=== PATIENT | female | born 1980 ===

== ENCOUNTER 2018-04-26 09:19 | Inpatient (IN) | payer MEDICAID, OTHER ==
--- NOTE | 2018-04-26 09:24 | ED PDOC ---
Arrival/HPI - General Historian: Patient, EMS - History of Present Illness Narrative History of Present Illness (Text): 04/26/18 09:24 A 38 year old female, whose past medical history includes asthma, presents to the emergency department brought in by EMS for an asthma attack. EMS reports patient was sick last night with a fever of 103.1 degrees and woke up today with difficulty breathing, cough, and fever. Upon EMS arrival, EMS reports patient was found having difficulty breathing and patient was given 2 Albuterol treatments, 1 dose of atrovent, 125 mg of solumedrol, .25 mg of terbutaline, and 2 grams of magnesium sulfate. Patient was able to report she had sick contact with her roommate who also exhibited similar symptoms. Patient notes she is not a smoker and her last asthma attack occurred around two years ago. ROS limited due to patient's condition. Time/Duration: 1-3 hours (earlier today) Symptom Onset: Sudden Symptom Course: Unchanged Activities at Onset: Light Context: Home Past Medical History - Provider Review Nursing Documentation Reviewed: Yes Family/Social History - Physician Review Nursing Documentation Reviewed: Yes Family/Social History: No Known Family HX Allergies/Home Meds Allergies/Adverse Reactions: Allergies No Known Allergies Allergy (Verified 04/26/18 09:21) Home Medications: Home Meds Medication Instructions Recorded Confirmed Albuterol HFA [Ventolin HFA 90 1 puff IH PRN PRN 04/26/18 04/26/18 mcg/actuation (8 g)] Fluticasone/Salmeterol 250/50 1 puff INH PRN PRN 04/26/18 04/26/18 [Advair Diskus 250/50] Review of Systems - Review of Systems Systems not reviewed;Unavailable: Respiratory Distress Physical Exam Vital Signs Reviewed: Yes Temperature: Afebrile Blood Pressure: Normal Pulse: Tachycardic Respiratory Rate: Normal Appearance: Positive for: Non-Toxic - Systems Exam Head: Present: Atraumatic, Normocephalic Pupils: Present: PERRL Extroacular Muscles: Present: EOMI Conjunctiva: Present: Normal Respiratory/Chest: Present: Wheezes (bilateral expiratory wheezing). No: Other (no stridor) Cardiovascular: Present: Regular Rate and Rhythm, Normal S1, S2. No: Murmurs Abdomen: No: Tenderness, Distention, Peritoneal Signs Back: Present: Normal Inspection Upper Extremity: Present: Normal Inspection. No: Cyanosis, Edema Lower Extremity: Present: Normal Inspection. No: Edema Neurological: Present: GCS=15, CN II-XII Intact, Speech Normal Skin: Present: Warm, Dry, Normal Color. No: Rashes Psychiatric: Present: Alert, Oriented x 3, Normal Insight, Normal Concentration Medical Decision Making ED Course and Treatment: 04/26/18 09:26 Impression: 38 year old female presenting to the emergency room for asthma attack. Plan: -- Chest X-ray -- Duoneb -- Reassess and disposition Progress Notes: 04/26/18 12:27 Procedure: Chest X-ray Dictator: Rhiannon Malone Impression: Questionable small opacity at the left lower lobe. Otherwise unremarkable study. - Scribe Statement The provider has reviewed the documentation as recorded by the Scribe Ashley Benoit All medical record entries made by the Scribe were at my direction and personally dictated by me. I have reviewed the chart and agree that the record accurately reflects my personal performance of the history, physical exam, medical decision making, and the department course for this patient. I have also personally directed, reviewed, and agree with the discharge instructions and disposition. Disposition/Present on Arrival - Present on Arrival Any Indicators Present on Arrival: No History of DVT/PE: No History of Uncontrolled Diabetes: No Urinary Catheter: No History of Decub. Ulcer: No - Disposition Have Diagnosis and Disposition been Completed?: Yes Diagnosis: Asthma exacerbation, Influenza A Disposition: HOSPITALIZED Disposition Time: 13:41 Condition: GOOD
[2018-04-26] MEDS: Albuterol-Ipratrop 3 mg / 0.5 (3 ml) UD IH SCH ×3 (09:43→10:08)
[2018-04-26 10:13] LABS: ALB/GLOB RATIO 1.1 (1.1-1.8); ALBUMIN 4.4 g/dL (3.0-4.8); ALT/SGPT 39 U/L (7-56); AST/SGOT 54 U/L (14-36); BLOOD UREA NITROGEN 13 mg/dL (7-21); CALCIUM 9.3 mg/dL (8.4-10.5); GFR NON-AFRICAN AMERICAN > 60
[2018-04-26 10:30] LABS: BASO # 0.01 K/mm3 (0.0-2.0); BASO % 0.1 % (0.0-3.0); HEMOGLOBIN 14.4 g/dL (12.0-16.0); LYMPH # 1.2 (1.2-3.4); LYMPH % 10.3 % (22.0-35.0); MEAN CELL VOLUME 77.2 fl (80.0-105.0); MEAN CORPUSCULAR HEMOGLOBIN 26.1 pg (25.0-35.0); MEAN CORPUSCULAR HGB CONC 33.8 g/dl (31.0-37.0); MEAN PLATELET VOLUME 10.9 fl (7.0-11.0); MONO # 0.5 (0.1-0.6); RBC 5.52 10^6/uL (3.5-6.1); RED CELL DISTRIBUTION WIDTH 13.5 % (11.5-14.5); WHITE BLOOD COUNT 11.9 10^3/uL (4.5-11.0)
[2018-04-26] MEDS ORDERED: Potassium Chloride 20 mEq ER Tab PO STA (10:56)
[2018-04-26] MEDS ORDERED: Albuterol 0.083% Inhal Sol (2.5 mg/3 mL) UD INH STA (11:43)
--- NOTE | 2018-04-26 12:13 | RAD ---
Date of service: 04/26/2018 HISTORY: asthma exacerbation COMPARISON: No prior. FINDINGS: LUNGS: There is questionable small opacity or infiltrate at the left lower lobe retrocardiac region noted. Slightly prominent pulmonary markers in the lower lobes. PLEURA: No significant pleural effusion identified, no pneumothorax apparent. CARDIOVASCULAR: No aortic atherosclerotic calcification present. Normal cardiac size. No pulmonary vascular congestion. OSSEOUS STRUCTURES: No significant abnormalities. VISUALIZED UPPER ABDOMEN: Normal. OTHER FINDINGS: None. IMPRESSION: Questionable small opacity at the left lower lobe. Otherwise unremarkable study.
[2018-04-26 14:53] VITALS: BMI 34.3
[2018-04-26] MEDS ORDERED: Pneumococcal 23-Valent Vaccine IM ONE (14:53)
[2018-04-26] MEDS ORDERED: Influenza Vaccine 60 mcg/0.5 mL SYR (4YR UP) IM ONE (14:53)
[2018-04-26] MEDS: Azithromycin 500MG/NS 250ml 500 MG/250 ML BAG IVPB SCH (17:39)
--- NOTE | 2018-04-26 17:42 | CP.PCM.HP ---
<David Latif - Last Filed: 04/27/18 03:42> History of Present Illness - History of Present Illness History of Present Illness: H&P for Hospitalist Dr. Caleb Latif PGY2 Chief Complaint: Shortness of breath, dizziness, head and body aches, chest con gestion HPI: Patient is a 38 female with a medical history of asthma (never intubated), presenting with complaints of chest congestion and body aches which began last night. Patient states she took her temperature when the symptoms started and noticed she was febrile at 102.6 F. Patient states she woke up this morning with the same symptoms however at this time they had worsened. Patient was hav ing much difficult breathing despite taking using albuterol, advair, and her nebulizer with no relief and therefore called EMS. Patient was brought to the ED and found to be in asthma exacerbation and positive for influenza A. Admits to cough, chest congestion, fever, sneezing, dizziness, headache, body aches. Denies sore throat, nausea, vomiting, chest pain, abdominal pain. PMD: Denies Surgical History: denies Social history: denies tobacco, alcohol, drug abuse. Works as a contractor for construction (own business) Allergies: Denies Family History: grandmother had asthma Present on Admission - Present on Admission Any Indicators Present on Admission: No Review of Systems - Review of Systems All systems: reviewed and no additional remarkable complaints except (what's mentioned in HPI) Past Patient History - Infectious Disease Hx of Infectious Diseases: None - Past Social History Smoking Status: Never Smoked - CARDIAC Hx Cardiac Disorders: No - PULMONARY Hx Respiratory Disorders: Yes Hx Asthma: Yes - NEUROLOGICAL Hx Neurological Disorder: No - HEENT Hx HEENT Problems: Yes (eyeglasses) - RENAL Hx Chronic Kidney Disease: No - ENDOCRINE/METABOLIC Hx Endocrine Disorders: No - HEMATOLOGICAL/ONCOLOGICAL Hx Blood Disorders: No - INTEGUMENTARY Hx Dermatological Problems: No - MUSCULOSKELETAL/RHEUMATOLOGICAL Hx Falls: No - GASTROINTESTINAL Hx Gastrointestinal Disorders: Yes (obese) - GENITOURINARY/GYNECOLOGICAL Hx Genitourinary Disorders: No - PSYCHIATRIC Hx Substance Use: No - SURGICAL HISTORY Hx Surgeries: No - ANESTHESIA Hx Anesthesia: No Meds Allergies/Adverse Reactions: Allergies Allergy/AdvReac Type Severity Reaction Status Date / Time No Known Allergies Allergy Verified 01/26/19 09:21 Physical Exam - Constitutional Appears: Non-toxic - Head Exam Head Exam: ATRAUMATIC, NORMAL INSPECTION - Eye Exam Eye Exam: Normal appearance - Respiratory Exam Respiratory Exam: Wheezes (bilateral diffuse). absent: Clear to Auscultation Bi lateral - Cardiovascular Exam Cardiovascular Exam: Tachycardia, +S1, +S2 - GI/Abdominal Exam GI & Abdominal Exam: Normal Bowel Sounds, Soft - Neurological Exam Neurological exam: Alert, CN II-XII Intact, Oriented x3 - Psychiatric Exam Psychiatric exam: Normal Mood - Skin Skin Exam: Dry, Warm Results - Vital Signs Recent Vital Signs: Last Vital Signs Temp 98.1 F 04/26/18 09:22 Pulse 123 H 04/26/18 15:01 Resp 18 04/26/18 15:01 BP 106/70 04/26/18 15:01 Pulse Ox 96 04/26/18 15:01 - Labs Result Diagrams: 04/26/18 09:24 04/26/18 09:24 Labs: Laboratory Results - last 24 hr 04/26/18 04/26/18 04/26/18 09:24 09:24 09:24 WBC 11.9 H RBC 5.52 Hgb 14.4 Hct 42.6 MCV 77.2 L MCH 26.1 MCHC 33.8 RDW 13.5 Plt Count 208 MPV 10.9 Neut % (Auto) 85.6 H Lymph % (Auto) 10.3 L Jefferson % (Auto) 4.0 Eos % (Auto) 0.0 L Baso % (Auto) 0.1 Lymph # (Auto) 1.2 Jefferson # (Auto) 0.5 Eos # (Auto) 0.0 Baso # (Auto) 0.01 Absolute Neuts (auto) 10.19 H Sodium 134 Potassium 3.1 L Chloride 99 Carbon Dioxide 19 L Anion Gap 20 BUN 13 Creatinine 0.8 Est GFR ( Amer) > 60 Est GFR (Non-Af Amer) > 60 Random Glucose 201 H Calcium 9.3 Total Bilirubin 0.4 AST 54 H ALT 39 Alkaline Phosphatase 69 Total Protein 8.5 H Albumin 4.4 Globulin 4.0 Albumin/Globulin Ratio 1.1 Beta HCG, Quant Influenza Typ A,B (EIA) Pos for influenza a H 04/26/18 09:24 WBC RBC Hgb Hct MCV MCH MCHC RDW Plt Count MPV Neut % (Auto) Lymph % (Auto) Jefferson % (Auto) Eos % (Auto) Baso % (Auto) Lymph # (Auto) Jefferson # (Auto) Eos # (Auto) Baso # (Auto) Absolute Neuts (auto) Sodium Potassium Chloride Carbon Dioxide Anion Gap BUN Creatinine Est GFR ( Amer) Est GFR (Non-Af Amer) Random Glucose Calcium Total Bilirubin AST ALT Alkaline Phosphatase Total Protein Albumin Globulin Albumin/Globulin Ratio Beta HCG, Quant < 2.39 Influenza Typ A,B (EIA) Assessment & Plan - Assessment and Plan (Free Text) Assessment: 38 F with history of asthma presenting with chest congestion, cough, head and body aches, fevers, chills found to be in asthma exacerbation with underlying influenza A virus. Plan: Asthma exacerbation -Xopenex PRN and JUAN DIEGO -Pulmicort -Solumedrol 40 q12h -Sputum C&S -Peak flow ordered Influenza A -Tamiflu started Left lower lobe opacity -R/o pneumonia -Azithromax and Rocephin started -Procaclitonin ordered -Pancultures -Test for Legionella urinary antigen, Mycoplasma, Strep pneumo Tachycardia -Continue to monitor -Most likely due to Infection -EKG ordered Hyperglycemia -Continue to monitor -HgA1C ordered Hypokalemia -Repleted with KCL -Continue to monitor, follow up with morning labs GI ppx:protonix DVT prophylaxis: No indicated as Vincenzo Score is [address] Caleb Latif PGY2 <Dominguez Ellis - Last Filed: 04/27/18 12:33> Results - Vital Signs Recent Vital Signs: Last Vital Signs Temp 98.2 F 04/27/18 07:00 Pulse 94 H 04/27/18 07:00 Resp 20 04/27/18 07:00 BP 102/67 04/27/18 07:00 Pulse Ox 96 04/27/18 07:00 - Labs Result Diagrams: 04/27/18 07:30 04/27/18 07:30 Labs: Laboratory Results - last 24 hr 04/26/18 04/27/18 04/27/18 18:24 07:30 07:30 WBC 20.9 H D RBC 5.24 Hgb 13.5 Hct 40.6 MCV 77.5 L MCH 25.8 MCHC 33.3 RDW 13.6 Plt Count 225 MPV 10.9 Neut % (Auto) 90.0 H Lymph % (Auto) 5.4 L Jefferson % (Auto) 4.6 Eos % (Auto) 0.0 L Baso % (Auto) 0.0 Lymph # (Auto) 1.1 L Jefferson # (Auto) 1.0 H Eos # (Auto) 0.0 Baso # (Auto) 0.00 Absolute Neuts (auto) 18.77 H Sodium 138 Potassium 4.5 Chloride 109 H Carbon Dioxide 21 Anion Gap 13 BUN 16 Creatinine 0.7 Est GFR ( Amer) > 60 Est GFR (Non-Af Amer) > 60 Random Glucose 153 H Calcium 8.5 Total Bilirubin 0.2 AST 58 H ALT 48 Alkaline Phosphatase 57 Total Protein 7.3 Albumin 3.8 Globulin 3.6 Albumin/Globulin Ratio 1.1 Urine Color Yellow Urine Appearance Clear Urine pH 6.0 Ur Specific Spencer 1.020 Urine Protein Negative Urine Glucose (UA) Negative Urine Ketones Negative Urine Blood Trace-intact H Urine Nitrate Negative Urine Bilirubin Negative Urine Urobilinogen 0.2 Ur Leukocyte Esterase Negative Urine RBC 5 - 10 H Urine WBC 1 - 3 Ur Epithelial Cells 4 - 5 Urine Bacteria Many Urine Other Uyeast Attending/Attestation - Attestation I have personally seen and examined this patient.: Yes I have fully participated in the care of the patient.: Yes I have reviewed all pertinent clinical information: Yes Notes (Text): 04/27/18 12:29 Attending note; Patient seen and examined with resident . Patient is alert and awake . Complaining of fevers and chills . Complaining of wheezing and shortness of breath . Denies any nausea, vomiting . Complaining of poor by mouth intake . Patient is a 38year old female with a medical history of asthma (never intubated), presenting with complaints of chest congestion and body aches which began last night. Patient states she took her temperature when the symptoms started and noticed she was febrile at 102.6 F. 1. Influenza A; patient is having spiking fevers and tachycardia. Patient was tachycardic with heart rate of 130s. Started on IV fluids, Tamiflu. Continue Tylenol for fever. 2. Sepsis; secondary to influenza. 3. Left lower lobe pneumonia; started on IV Rocephin and Zithromax. 4. Asthma exacerbation; continue oxygen, DuoNeb and IV Solu-Medrol. Patient is on isolation. 5 GI prophylaxis with Protonix. The diagnosis, treatment plan discussed with patient in detail. Patient will be referred to [facility] clinic upon discharge.
[2018-04-26] MEDS: Levalbuterol 0.63 MG/3 ML Inhal Soln UD IH SCH (18:51)
[2018-04-26 18:56] LABS: URINE APPEARANCE CLEAR (CLEAR); URINE BILIRUBIN NEGATIVE (NEGATIVE); URINE BLOOD TRACE-INTACT (NEGATIVE); URINE COLOR YELLOW (YELLOW); URINE GLUCOSE (UA) NEGATIVE (NEGATIVE); URINE LEUKOCYTE ESTERASE NEGATIVE Leu/uL (NEGATIVE); URINE PROTEIN NEGATIVE mg/dL (<30 mg/dL); URINE UROBILINOGEN 0.2 E.U./dL (<1 E.U./dL)
[2018-04-26 19:01] LABS: URINE BACTERIA MANY /hpf
[2018-04-26] MEDS: cefTRIAXone 1 gm 1 GM/100 ML BAG IVPB SCH (19:47)
[2018-04-26] MEDS: Budesonide 0.5 mg/2 ml Inhal Susp UD IH SCH (20:54)
[2018-04-26] MEDS: MethylPREDNISolone 40 mg Vial IVP SCH (22:04)
[2018-04-27] MEDS: Levalbuterol 0.63 MG/3 ML Inhal Soln UD IH PRN ×4 (00:34→23:55)
[2018-04-27] MEDS: Levalbuterol 0.63 MG/3 ML Inhal Soln UD IH SCH ×4 (07:09→19:32)
[2018-04-27] MEDS: Budesonide 0.5 mg/2 ml Inhal Susp UD IH SCH ×2 (07:09→19:32)
[2018-04-27 07:45] LABS: HEMOGLOBIN 13.5 g/dL (12.0-16.0); LYMPH # 1.1 (1.2-3.4); LYMPH % 5.4 % (22.0-35.0); MEAN CELL VOLUME 77.5 fl (80.0-105.0); MEAN CORPUSCULAR HEMOGLOBIN 25.8 pg (25.0-35.0); MEAN CORPUSCULAR HGB CONC 33.3 g/dl (31.0-37.0); MEAN PLATELET VOLUME 10.9 fl (7.0-11.0); MONO % 4.6 % (1.0-6.0); RBC 5.24 10^6/uL (3.5-6.1); RED CELL DISTRIBUTION WIDTH 13.6 % (11.5-14.5); WHITE BLOOD COUNT 20.9 10^3/uL (4.5-11.0)
[2018-04-27 08:05] LABS: ALB/GLOB RATIO 1.1 (1.1-1.8); ALBUMIN 3.8 g/dL (3.0-4.8); ALT/SGPT 48 U/L (7-56); AST/SGOT 58 U/L (14-36); BLOOD UREA NITROGEN 16 mg/dL (7-21); CALCIUM 8.5 mg/dL (8.4-10.5); GFR NON-AFRICAN AMERICAN > 60
[2018-04-27] MEDS: MethylPREDNISolone 40 mg Vial IVP SCH ×2 (09:32→22:18)
--- NOTE | 2018-04-27 13:20 | CP.PCM.PN ---
<Luis Cespedes - Last Filed: 04/27/18 13:09> Subjective - Date & Time of Evaluation Date of Evaluation: 04/27/18 Time of Evaluation: 13:09 - Subjective Subjective: INTERNAL MEDICINE PROGRESS NOTE FOR DR. KLAUDIA Cespedes PGY1 Pt seen and examined at bedside this am. No acute events overnight. Pt complains of cough, bodyaches and fever. Otherwise ROS is negative Objective - Vital Signs/Intake and Output Vital Signs (last 24 hours): Temp Pulse Resp BP Pulse Ox 98.2 F 94 H 20 102/67 96 04/27/18 07:00 04/27/18 07:00 04/27/18 07:00 04/27/18 07:00 04/27/18 07:00 Intake and Output: 04/27/18 04/27/18 06:59 18:59 Intake Total 1300 Balance 1300 - Medications Medications: Current Medications Acetaminophen (Tylenol 325mg Tab) 650 mg PO Q6H PRN PRN Reason: Flu symptoms Last Admin: 04/27/18 09:33 Dose: 650 mg Budesonide (Pulmicort Respules) 1 mg IH [id number] JUAN DIEGO Last Admin: 04/27/18 07:09 Dose: 1 mg Guaifenesin (Robitussin) 200 mg PO Q4H PRN PRN Reason: Cough and congestion Ceftriaxone Sodium (Rocephin 1 Gram Ivpb) 1 gm in 100 mls @ 100 mls/hr IVPB Q24H JUAN DIEGO; Protocol Last Admin: 04/26/18 19:47 Dose: 100 mls/hr Azithromycin (Zithromax 500mg In Ns) 500 mg in 250 mls @ 167 mls/hr IVPB Q24H JUAN DIEGO; Protocol Last Admin: 04/26/18 17:39 Dose: 167 mls/hr Potassium Chloride 10 meq/ (Sodium Chloride) 1,005 mls @ 100 mls/hr IV .Q10H3M JUAN DIEGO Last Admin: 04/26/18 18:39 Dose: 100 mls/hr Levalbuterol HCl (Xopenex) 0.63 mg IH [id number] PRN PRN Reason: Shortness of Breath Last Admin: 04/27/18 10:29 Dose: 0.63 mg Levalbuterol HCl (Xopenex) 0.63 mg IH TIDRESP JUAN DIEGO Last Admin: 04/27/18 07:09 Dose: 0.63 mg Methylprednisolone (Solu-Medrol) 40 mg IVP Q12 JUAN DIEGO Last Admin: 04/27/18 09:32 Dose: 40 mg Oseltamivir Phosphate (Tamiflu Cap) 75 mg PO Q12 JUAN DIEGO; Protocol Last Admin: 04/27/18 09:33 Dose: 75 mg Pantoprazole Sodium (Protonix Inj) 40 mg IVP DAILY JUAN DIEGO Last Admin: 04/27/18 09:32 Dose: 40 mg - Labs Labs: 04/27/18 07:30 04/27/18 07:30 - Constitutional Appears: Well, Non-toxic, No Acute Distress - Head Exam Head Exam: NORMAL INSPECTION, NORMOCEPHALIC - Eye Exam Eye Exam: EOMI, Normal appearance - ENT Exam ENT Exam: Mucous Membranes Moist, Normal Exam - Neck Exam Neck Exam: Normal Inspection - Respiratory Exam Respiratory Exam: Wheezes, NORMAL BREATHING PATTERN - Cardiovascular Exam Cardiovascular Exam: REGULAR RHYTHM, +S1, +S2 - GI/Abdominal Exam GI & Abdominal Exam: Soft. absent: Tenderness - Extremities Exam Extremities Exam: Normal Inspection. absent: Calf Tenderness - Back Exam Back Exam: NORMAL INSPECTION - Neurological Exam Neurological Exam: Alert, Awake, Oriented x3 - Psychiatric Exam Psychiatric exam: Normal Affect, Normal Mood - Skin Skin Exam: Dry, Intact, Warm Assessment and Plan - Assessment and Plan (Free Text) Assessment: 38 F with history of asthma presenting with chest congestion, cough, head and body aches, fevers, chills found to be in asthma exacerbation with underlying influenza A virus. Plan: Sepsis 2/2 influenza WBC >12k, HR>90 with source Pt spiked fevers overnight continue tamiflu droplet precautions Asthma exacerbation continue Xopenex PRN and JUAN DIEGO, pulmicort continue solumedrol 40 q12h robitussin for cough Sputum C&S pending Peak flow Left lower lobe pneumonia continue azithromycin/ceftriaxone continue NS@100 procalcitonin pending pancultures pending Legionella urinary antigen negative Mycoplasma, Strep pneumo Hyperglycemia like 2/2 steroids a1c wnl GI ppx/DVT: protonix/SCD Case seen, examined and discussed with attending physician, Dr. Klaudia Cespedes PGY1 <Dominguez Ellis - Last Filed: 04/27/18 13:29> Objective - Vital Signs/Intake and Output Vital Signs (last 24 hours): Temp Pulse Resp BP Pulse Ox 98.2 F 94 H 20 102/67 96 04/27/18 07:00 04/27/18 07:00 04/27/18 07:00 04/27/18 07:00 04/27/18 07:00 Intake and Output: 04/27/18 04/27/18 06:59 18:59 Intake Total 1300 Balance 1300 - Medications Medications: Current Medications Acetaminophen (Tylenol 325mg Tab) 650 mg PO Q6H PRN PRN Reason: Flu symptoms Last Admin: 04/27/18 09:33 Dose: 650 mg Budesonide (Pulmicort Respules) 1 mg IH [id number] JUAN DIEGO Last Admin: 04/27/18 07:09 Dose: 1 mg Guaifenesin (Robitussin) 200 mg PO Q4H PRN PRN Reason: Cough and congestion Ceftriaxone Sodium (Rocephin 1 Gram Ivpb) 1 gm in 100 mls @ 100 mls/hr IVPB Q24H JUAN DIEGO; Protocol Last Admin: 04/26/18 19:47 Dose: 100 mls/hr Azithromycin (Zithromax 500mg In Ns) 500 mg in 250 mls @ 167 mls/hr IVPB Q24H JUAN DIEGO; Protocol Last Admin: 04/26/18 17:39 Dose: 167 mls/hr Potassium Chloride 10 meq/ (Sodium Chloride) 1,005 mls @ 100 mls/hr IV .Q10H3M JUAN DIEGO Last Admin: 04/26/18 18:39 Dose: 100 mls/hr Levalbuterol HCl (Xopenex) 0.63 mg IH [id number] PRN PRN Reason: Shortness of Breath Last Admin: 04/27/18 10:29 Dose: 0.63 mg Levalbuterol HCl (Xopenex) 0.63 mg IH TIDRESP JUAN DIEGO Last Admin: 04/27/18 07:09 Dose: 0.63 mg Methylprednisolone (Solu-Medrol) 40 mg IVP Q12 JUAN DIEGO Last Admin: 04/27/18 09:32 Dose: 40 mg Oseltamivir Phosphate (Tamiflu Cap) 75 mg PO Q12 JUAN DIEGO; Protocol Last Admin: 04/27/18 09:33 Dose: 75 mg Pantoprazole Sodium (Protonix Inj) 40 mg IVP DAILY [facility] Last Admin: 04/27/18 09:32 Dose: 40 mg - Labs Labs: 04/27/18 07:30 04/27/18 07:30 Attending/Attestation - Attestation I have personally seen and examined this patient.: Yes I have fully participated in the care of the patient.: Yes I have reviewed all pertinent clinical information, including history, physical exam and plan: Yes Notes (Text): 04/27/18 13:25 Attending note; Patient seen and examined with resident. Patient is alert and awake. Fever is down. Chills improving. wheezing and shortness of breath is improving slowly. Complaining yellowish sputum production. Patient is a 38year old female with a medical history of asthma (never intubated), presenting with complaints of chest congestion and body aches which began last night. Patient states she took her temperature when the symptoms started and noticed she was febrile at 102.6 F. 1. Influenza A; fever and tachycardia is improving. Started on IV fluids, Tamiflu. Continue Tylenol for fever. 2. Sepsis; secondary to influenza. 3. Left lower lobe pneumonia; started on IV Rocephin and Zithromax. 4. Asthma exacerbation; continue oxygen, DuoNeb and IV Solu-Medrol. Patient is on isolation. 5. Leukocytosis; secondary to steroids. Sepsis is improving. 6. Elevated blood sugar secondary to IV Steroid. A1c 5.5 . dietary education given . 5 GI prophylaxis with Protonix. The diagnosis, treatment plan discussed with patient in detail. Patient will be referred to [facility] clinic upon discharge. 04/27/18 13:28
[2018-04-27] MEDS: guaiFENesin 200 mg/10 ml Syrup UD PO PRN ×2 (14:11→22:19)
[2018-04-27] MEDS: Azithromycin 500MG/NS 250ml 500 MG/250 ML BAG IVPB SCH (17:34)
--- NOTE | 2018-04-27 21:26 | CARD ---
APPROVED REPORT Date of service: 04/26/2018 EKG Measurement Heart [id number] <Conclusion> Sinus tachycardia Otherwise normal ECG
[2018-04-27] MEDS: cefTRIAXone 1 gm 1 GM/100 ML BAG IVPB SCH (22:18)
[2018-04-28 07:35] LABS: HEMOGLOBIN 12.6 g/dL (12.0-16.0); LYMPH # 1.3 (1.2-3.4); LYMPH % 8.3 % (22.0-35.0); MEAN CELL VOLUME 77.8 fl (80.0-105.0); MEAN CORPUSCULAR HEMOGLOBIN 25.9 pg (25.0-35.0); MEAN CORPUSCULAR HGB CONC 33.3 g/dl (31.0-37.0); MEAN PLATELET VOLUME 10.9 fl (7.0-11.0); MONO # 0.7 (0.1-0.6); MONO % 4.9 % (1.0-6.0); RBC 4.86 10^6/uL (3.5-6.1); RED CELL DISTRIBUTION WIDTH 13.9 % (11.5-14.5)
[2018-04-28] MEDS: Budesonide 0.5 mg/2 ml Inhal Susp UD IH SCH ×2 (07:38→19:48)
[2018-04-28] MEDS: Levalbuterol 0.63 MG/3 ML Inhal Soln UD IH SCH ×3 (07:39→19:48)
[2018-04-28 08:18] LABS: ALBUMIN 3.3 g/dL (3.0-4.8); ALT/SGPT 48 U/L (7-56); AST/SGOT 53 U/L (14-36); BLOOD UREA NITROGEN 15 mg/dL (7-21); CALCIUM 8.3 mg/dL (8.4-10.5); GFR NON-AFRICAN AMERICAN > 60
[2018-04-28] MEDS: MethylPREDNISolone 40 mg Vial IVP SCH ×2 (09:16→21:42)
--- NOTE | 2018-04-28 11:47 | RAD ---
Date of service: 04/28/2018 HISTORY: continuous wheezing, poss PNA, reassess COMPARISON: Portable chest 04/26/2018. FINDINGS: LUNGS: No active pulmonary disease. PLEURA: No significant pleural effusion identified, no pneumothorax apparent. CARDIOVASCULAR: No aortic atherosclerotic calcification present. Normal cardiac size. Hilar vascular markings appear stable taking differences in positioning into account. No reticular changes are appreciate the lung that would support definite pulmonary edema. Clinically correlate nevertheless as these vessels appears somewhat prominent. OSSEOUS STRUCTURES: No significant abnormalities. VISUALIZED UPPER ABDOMEN: Normal. OTHER FINDINGS: None. IMPRESSION: No acute infiltrate bilaterally. No pleural effusion or pneumothorax. Hilar vascular markings are stable and remain somewhat prominent appearing appears unclear whether this is a function of normal variation or potential limited pulmonary vascular congestion. Clinically correlate further nevertheless. No abnormal reticular pulmonary changes to support pulmonary vascular congestion.
[2018-04-28] MEDS: Levalbuterol 0.63 MG/3 ML Inhal Soln UD IH PRN ×2 (11:50→16:32)
--- NOTE | 2018-04-28 14:57 | CP.PCM.PN ---
<Luis Cespedes - Last Filed: 04/28/18 15:04> Subjective - Date & Time of Evaluation Date of Evaluation: 04/28/18 Time of Evaluation: 14:55 - Subjective Subjective: INTERNAL MEDICINE PROGRESS NOTE FOR DR. DYLLAN Cespedes PGY1 Pt seen and examined at bedside this am. Pt seen while undergoing breathing treatment. She reports continued cough, wheezing and shortness of breath especially with deep inspiration. She reports body-aches have resolved. She denies fevers, chills, headache, chest, palpitations, nausea, vomiting, constipation, diarrhea, dysuria Objective - Vital Signs/Intake and Output Vital Signs (last 24 hours): Temp Pulse Resp BP Pulse Ox 97.9 F 87 20 108/65 99 04/28/18 06:00 04/28/18 06:00 04/28/18 06:00 04/28/18 06:00 04/28/18 06:00 - Medications Medications: Current Medications Acetaminophen (Tylenol 325mg Tab) 650 mg PO Q6H PRN PRN Reason: Flu symptoms Last Admin: 04/27/18 09:33 Dose: 650 mg Budesonide (Pulmicort Respules) 1 mg IH [id number] JUAN DIEGO Last Admin: 04/28/18 07:38 Dose: 1 mg Guaifenesin (Robitussin) 200 mg PO Q4H PRN PRN Reason: Cough and congestion Last Admin: 04/27/18 22:19 Dose: 200 mg Ceftriaxone Sodium (Rocephin 1 Gram Ivpb) 1 gm in 100 mls @ 100 mls/hr IVPB Q24H JUAN DIEGO; Protocol Last Admin: 04/27/18 22:18 Dose: 100 mls/hr Azithromycin (Zithromax 500mg In Ns) 500 mg in 250 mls @ 167 mls/hr IVPB Q24H JUAN DIEGO; Protocol Last Admin: 04/27/18 17:34 Dose: 167 mls/hr Lactobacillus Acidophilus (Bacid Acidophilus) 1 cap PO BID JUAN DIEGO Levalbuterol HCl (Xopenex) 0.63 mg IH [id number] PRN PRN Reason: Shortness of Breath Last Admin: 04/28/18 11:50 Dose: 0.63 mg Levalbuterol HCl (Xopenex) 0.63 mg IH TIDRESP JUAN DIEGO Last Admin: 04/28/18 13:49 Dose: Not Given Methylprednisolone (Solu-Medrol) 40 mg IVP Q12 JUAN DIEGO Last Admin: 04/28/18 09:16 Dose: 40 mg Oseltamivir Phosphate (Tamiflu Cap) 75 mg PO Q12 JUAN DIEGO; Protocol Last Admin: 04/28/18 09:16 Dose: 75 mg Pantoprazole Sodium (Protonix Ec Tab) 40 mg PO 0600 JUAN DIEGO - Labs Labs: 04/28/18 07:20 04/28/18 07:20 - Constitutional Appears: Well, Non-toxic, No Acute Distress - Head Exam Head Exam: NORMAL INSPECTION - Eye Exam Eye Exam: EOMI, Normal appearance - ENT Exam ENT Exam: Normal Exam - Neck Exam Neck Exam: Normal Inspection - Respiratory Exam Respiratory Exam: Wheezes Additional comments: course breath sounds - Cardiovascular Exam Cardiovascular Exam: REGULAR RHYTHM, +S1, +S2 - GI/Abdominal Exam GI & Abdominal Exam: Soft. absent: Tenderness - Extremities Exam Extremities Exam: Normal Inspection. absent: Calf Tenderness, Pedal Edema - Back Exam Back Exam: NORMAL INSPECTION - Neurological Exam Neurological Exam: Alert, Awake - Psychiatric Exam Psychiatric exam: Normal Affect, Normal Mood - Skin Skin Exam: Dry, Intact, Warm Assessment and Plan - Assessment and Plan (Free Text) Assessment: 38 F with history of asthma presenting with chest congestion, cough, head and body aches, fevers, chills found to be in asthma exacerbation with underlying influenza A virus and pneumonia in L lower lobe Plan: Influenza Pt no longer meet sirs criteria continue tamiflu droplet precautions. LLL pnemonia continue azithromycin/ceftriaxone for CAP continue NS@100 procalcitonin 0.32 pancultures pending Legionella urinary antigen negative f/u mycoplasma/s. pneumo ag Asthma exacerbation continue Xopenex PRN and JUAN DIEGO, pulmicort continue solumedrol 40 q12h robitussin for cough peak flow daily Hyperglycemia like 2/2 steroids a1c 5.5 GI ppx/DVT: protonix/SCD Case seen, examined and discussed with attending physician, Dr. Dyllan Cespedes PGY1 <Leela Mijares R - Last Filed: 04/28/18 15:31> Objective - Vital Signs/Intake and Output Vital Signs (last 24 hours): Temp Pulse Resp BP Pulse Ox 98.2 F 78 20 107/66 97 04/28/18 14:00 04/28/18 14:00 04/28/18 14:00 04/28/18 14:00 04/28/18 14:00 - Medications Medications: Current Medications Acetaminophen (Tylenol 325mg Tab) 650 mg PO Q6H PRN PRN Reason: Flu symptoms Last Admin: 04/27/18 09:33 Dose: 650 mg Budesonide (Pulmicort Respules) 1 mg IH [id number] JUAN DIEGO Last Admin: 04/28/18 07:38 Dose: 1 mg Guaifenesin (Robitussin) 200 mg PO Q4H PRN PRN Reason: Cough and congestion Last Admin: 04/27/18 22:19 Dose: 200 mg Ceftriaxone Sodium (Rocephin 1 Gram Ivpb) 1 gm in 100 mls @ 100 mls/hr IVPB Q24H JUAN DIEGO; Protocol Last Admin: 04/27/18 22:18 Dose: 100 mls/hr Azithromycin (Zithromax 500mg In Ns) 500 mg in 250 mls @ 167 mls/hr IVPB Q24H JUAN DIEGO; Protocol Last Admin: 04/27/18 17:34 Dose: 167 mls/hr Lactobacillus Acidophilus (Bacid Acidophilus) 1 cap PO BID JUAN DIEGO Levalbuterol HCl (Xopenex) 0.63 mg IH [id number] PRN PRN Reason: Shortness of Breath Last Admin: 04/28/18 11:50 Dose: 0.63 mg Levalbuterol HCl (Xopenex) 0.63 mg IH TIDRESP JUAN DIEGO Last Admin: 04/28/18 13:49 Dose: Not Given Methylprednisolone (Solu-Medrol) 40 mg IVP Q12 JUAN DIEGO Last Admin: 04/28/18 09:16 Dose: 40 mg Oseltamivir Phosphate (Tamiflu Cap) 75 mg PO Q12 JUAN DIEGO; Protocol Last Admin: 04/28/18 09:16 Dose: 75 mg Pantoprazole Sodium (Protonix Ec Tab) 40 mg PO 0600 [facility] - Labs Labs: 04/28/18 07:20 04/28/18 07:20 Attending/Attestation - Attestation I have personally seen and examined this patient.: Yes I have fully participated in the care of the patient.: Yes I have reviewed all pertinent clinical information, including history, physical exam and plan: Yes Notes (Text): Patient seen and examined by me with resident at 11:05AM on 04/28/18. Case including HPI, physical exam, and assessment and plan discussed with resident. Agree with above with following additions/corrections. Patient is a 38-year-old female past medical history significant for asthma that presented to the emergency room with shortness of breath, dizziness, chest con gestion and body aches. Patient states that she feels a little better today. She states that she can not take a deep breath without coughing. Still with shortness of breath but a "little improved." Still requiring O2 via nasal cannula. No chest pain or palpitations. No headaches or dizziness. No fevers or chills. No nausea, vomiting, or abdominal pain. No dysuria. Patient states she started to have watery diarrhea last night. Patient has had 2 episodes. Physical exam: General: Awake and alert sitting up in bed in no acute distress HEENT: Normocephalic, atraumatic. Extraocular muscles intact, pupils equal and reactive, no scleral icterus. Oropharynx is pink and moist. No pharyngeal erythema or exudate appreciated. Neck is supple. Cardiovascular: Regular rhythm. Normal S1 and S2. No murmurs, rubs, or gallops appreciated Pulmonary: Normal respiratory effort. Decreased breath sounds. Positive coarse breath sounds throughout. Positive expiratory wheezing throughout. No rhonchi or rales appreciated. Gastrointestinal: Soft, nondistended. Nontender. Positive bowel sounds all 4 quadrants. No guarding. Musculoskeletal: Moves all extremities. No calf tenderness. No edema appreciated. Central nervous system: AAOx3, CN 2-12 grossly intact. Dermatologic: Skin warm and dry. Assessment and plan: Patient is a 38-year-old female past medical history significant for asthma that presented to the emergency room with shortness of breath, dizziness, chest congestion and body aches. 1. Sepsis secondary to influenza A and left lower lobe community-acquired pneumonia. Sepsis resolved. Leukocytosis downtrending. Pro-calcitonin 0.32. Patient is afebrile for over 24 hours. Blood cultures with no growth. Urine for Legionella negative. Chest x-ray per radiologist showed questionable small op acity at the left lower lobe. Repeat chest xray today per radiologist showed no acute infiltrate bilaterally, no pleural effusion or pneumothorax, hilar vascular markings are stable and remained somewhat prominent. Continue Tamiflu. Continue Rocephin and Zithromax. 2. Acute asthma exacerbation secondary pneumonia and influenza A. Continue nebulizer treatments. Continue Pulmicort. Continue guaifenesin as needed. Continue Solu-Medrol, taper. Continue O2 via nasal cannula as needed. 3. Diarrhea. May be secondary to antibiotics. Monitor closely. Started on lactobacillus 4. Leukocytosis. Likely secondary to #1 and steroid use. Downtrending. Continue to monitor. 5. Hyperglycemia. Likely secondary to steroids. Hemoglobin A1c 5.5. 6. GI/DVT prophylaxis. Protonix/SCDs and ambulation Case was discussed in detail with the patient regarding current diagnosis and treatment plan. All questions answered.
[2018-04-28 15:13] VITALS: TEMP 98.2
[2018-04-28] MEDS: cefTRIAXone 1 gm 1 GM/100 ML BAG IVPB SCH (18:10)
[2018-04-28] MEDS: Lactobacillus Acidophilus 500 MU Cap PO SCH (18:29)
[2018-04-28] MEDS: Azithromycin 500MG/NS 250ml 500 MG/250 ML BAG IVPB SCH (19:49)
[2018-04-29] MEDS: Levalbuterol 0.63 MG/3 ML Inhal Soln UD IH PRN ×2 (00:05→06:23)
[2018-04-29] MEDS ORDERED: Pantoprazole 40 mg EC Tab PO SCH (06:00)
[2018-04-29 07:28] LABS: BASO # 0.01 K/mm3 (0.0-2.0); BASO % 0.1 % (0.0-3.0); HEMOGLOBIN 12.6 g/dL (12.0-16.0); LYMPH # 1.7 (1.2-3.4); LYMPH % 15.4 % (22.0-35.0); MEAN CELL VOLUME 78.4 fl (80.0-105.0); MEAN CORPUSCULAR HEMOGLOBIN 25.1 pg (25.0-35.0); MEAN CORPUSCULAR HGB CONC 32.1 g/dl (31.0-37.0); MEAN PLATELET VOLUME 10.7 fl (7.0-11.0); MONO # 0.8 (0.1-0.6); MONO % 7.3 % (1.0-6.0); RBC 5.01 10^6/uL (3.5-6.1); RED CELL DISTRIBUTION WIDTH 14.2 % (11.5-14.5); WHITE BLOOD COUNT 10.9 10^3/uL (4.5-11.0)
[2018-04-29 07:47] LABS: ALBUMIN 3.6 g/dL (3.0-4.8); ALT/SGPT 49 U/L (7-56); AST/SGOT 54 U/L (14-36); BLOOD UREA NITROGEN 12 mg/dL (7-21); CALCIUM 8.7 mg/dL (8.4-10.5); GFR NON-AFRICAN AMERICAN > 60
[2018-04-29] MEDS: Budesonide 0.5 mg/2 ml Inhal Susp UD IH SCH (07:52)
[2018-04-29] MEDS: Levalbuterol 0.63 MG/3 ML Inhal Soln UD IH SCH ×2 (07:53→13:14)
[2018-04-29 09:15] VITALS: BP 119/83; PULSE 73; RESP 18; O2SAT 95
[2018-04-29] MEDS: Lactobacillus Acidophilus 500 MU Cap PO SCH (09:37)
[2018-04-29] MEDS: MethylPREDNISolone 40 mg Vial IVP SCH (09:37)
--- NOTE | 2018-04-29 18:17 | CP.PCM.DIS ---
<Luis Cespedes - Last Filed: 04/29/18 18:08> Provider - Provider Date of Admission: 04/28/18 11:00 Attending physician: Leela Mijares DO Primary care physician: [facility] PRIMARY CARE PROVIDER Consults: 04/26/18 14:53 Inpatient NCR OPERATOR Core Measures Referral Routine Comment: exac asthma Physician Instructions: Reason For Exam: eval Transition In Care/Readmission Reduction Routine Comment: asthma Physician Instructions: Reason For Exam: exac Time Spent in preparation of Discharge (in minutes): 45 Diagnosis - Discharge Diagnosis (1) Asthma exacerbation Status: Resolved (2) Influenza A Status: Resolved Hospital Course - Lab Results Lab Results: Micro Results 04/26/18 09:40 Blood Blood Culture - Preliminary NO GROWTH AFTER 3 DAYS 04/26/18 09:24 Blood Blood Culture - Preliminary NO GROWTH AFTER 3 DAYS 04/26/18 18:24 Urine,Clean Catch Urine Culture - Final No Growth (<1,000 CFU/ML) Most Recent Lab Values WBC 10.9 10^3/uL (4.5-11.0) D 04/29/18 07:00 RBC 5.01 10^6/uL (3.5-6.1) 04/29/18 07:00 Hgb 12.6 g/dL (12.0-16.0) 04/29/18 07:00 Hct 39.3 % (36.0-48.0) 04/29/18 07:00 MCV 78.4 fl (80.0-105.0) L 04/29/18 07:00 MCH 25.1 pg (25.0-35.0) 04/29/18 07:00 MCHC 32.1 g/dl (31.0-37.0) 04/29/18 07:00 RDW 14.2 % (11.5-14.5) 04/29/18 07:00 Plt Count 218 10^3/uL (120.0-450.0) 04/29/18 07:00 MPV 10.7 fl (7.0-11.0) 04/29/18 07:00 Neut % (Auto) 77.2 % (50.0-68.0) H 04/29/18 07:00 Lymph % (Auto) 15.4 % (22.0-35.0) L 04/29/18 07:00 [place] % (Auto) 7.3 % (1.0-6.0) H 04/29/18 07:00 Eos % (Auto) 0.0 % (1.5-5.0) L 04/29/18 07:00 Baso % (Auto) 0.1 % (0.0-3.0) 04/29/18 07:00 Lymph # (Auto) 1.7 (1.2-3.4) 04/29/18 07:00 [place] # (Auto) 0.8 (0.1-0.6) H 04/29/18 07:00 Eos # (Auto) 0.0 (0.0-0.7) 04/29/18 07:00 Baso # (Auto) 0.01 K/mm3 (0.0-2.0) 04/29/18 07:00 Absolute Neuts (auto) 8.41 (1.4-6.5) H 04/29/18 07:00 Sodium 137 mmol/L (132-148) 04/29/18 07:00 Potassium 4.3 mmol/L (3.6-5.0) 04/29/18 07:00 Chloride 106 mmol/L (98-107) 04/29/18 07:00 Carbon Dioxide 25 mmol/L (21-33) 04/29/18 07:00 Anion Gap 10 (10-20) 04/29/18 07:00 BUN 12 mg/dL (7-21) 04/29/18 07:00 Creatinine 0.6 mg/dl (0.7-1.2) L 04/29/18 07:00 Est GFR ( Amer) > 60 04/29/18 07:00 Est GFR (Non-Af Amer) > 60 04/29/18 07:00 Random Glucose 125 mg/dL (70-110) H 04/29/18 07:00 Hemoglobin A1c 5.5 % (4.2-6.5) 04/26/18 09:24 Calcium 8.7 mg/dL (8.4-10.5) 04/29/18 07:00 Phosphorus 3.8 mg/dL (2.5-4.5) 04/29/18 07:00 Magnesium 2.2 mg/dL (1.7-2.2) 04/29/18 07:00 Total Bilirubin 0.2 mg/dL (0.2-1.3) 04/29/18 07:00 AST 54 U/L (14-36) H 04/29/18 07:00 ALT 49 U/L (7-56) 04/29/18 07:00 Alkaline Phosphatase 55 U/L (38-126) 04/29/18 07:00 Total Protein 7.1 g/dL (5.8-8.3) 04/29/18 07:00 Albumin 3.6 g/dL (3.0-4.8) 04/29/18 07:00 Globulin 3.6 gm/dL 04/29/18 07:00 Albumin/Globulin Ratio 1.0 (1.1-1.8) L 04/29/18 07:00 Procalcitonin 0.32 NG/ML (0.19-0.49) 04/26/18 09:24 Beta HCG, Quant < 2.39 mIU/mL (0-6.15) 04/26/18 09:24 Urine Color Yellow (YELLOW) 04/26/18 18:24 Urine Appearance Clear (CLEAR) 04/26/18 18:24 Urine pH 6.0 (4.7-8.0) 04/26/18 18:24 Ur Specific [place] 1.020 (1.005-1.035) 04/26/18 18:24 Urine Protein Negative mg/dL (<30 mg/dL) 04/26/18 18:24 Urine Glucose (UA) Negative mg/dL (NEGATIVE) 04/26/18 18:24 Urine Ketones Negative mg/dL (NEGATIVE) 04/26/18 18:24 Urine Blood Trace-intact (NEGATIVE) H 04/26/18 18:24 Urine Nitrate Negative (NEGATIVE) 04/26/18 18:24 Urine Bilirubin Negative (NEGATIVE) 04/26/18 18:24 Urine Urobilinogen 0.2 E.U./dL (<1 E.U./dL) 04/26/18 18:24 Ur Leukocyte Esterase Negative Raul/uL (NEGATIVE) 04/26/18 18:24 Urine RBC 5 - 10 /hpf (0-2) H 04/26/18 18:24 Urine WBC 1 - 3 /hpf (0-6) 04/26/18 18:24 Ur Epithelial Cells 4 - 5 /hpf (0-5) 04/26/18 18:24 Urine Bacteria Many /hpf (NONE) 04/26/18 18:24 Urine Other Uyeast /hpf 04/26/18 18:24 Influenza Typ A,B (EIA) Pos for influenza a (NEGATIVE) H 04/26/18 09:24 Ur L.pneumophila Ag Negative (NEGATIVE) 04/26/18 18:24 - Hospital Course Hospital Course: Upon Admission: 38 female with a medical history of asthma (never intubated), presented with complaints of chest congestion and body aches which began the night before. Patient stated she took her temperature when the symptoms started and noticed she was febrile at 102.6 F. Patient stated she woke up that morning with the same symptoms however at the time they had worsened. Patient was having difficult breathing despite taking using albuterol, advair, and her nebulizer with no relief and therefore called EMS. Patient was brought to the ED and found to be in asthma exacerbation and positive for influenza A. She admitted to cough, chest congestion, fever, sneezing, dizziness, headache, body aches. Denied sore throat, nausea, vomiting, chest pain, abdominal pain. Hospital Course: Pt was treated for sepsis 2/2 influenza/pneumonia started on IVF, tamiflu and tylenol for fever. She was placed on droplet precautions d/t her flu. She was found to have LLL pneumonia. She was started on IV rocephin & azithromycin. She was treated for asthma exacerbation with O2, duoneb, and IV solumedrol. Pts clinical course had improved throughout hospital course. Upon Discharge: Pt is feeling is much better. Her respiratory status has improved. She is tolerating, ambulating well, passed 6-min walk test without become hypoxic. She is to be send home with cefuroxme, tamiflu and medrol dose pack taper. Her vital signs are stable. Discharge Exam - Head Exam Head Exam: NORMAL INSPECTION Discharge Plan - Discharge Medications Prescriptions: Albuterol 0.083% [Albuterol 0.083% Inhal Martha (2.5 mg/3 ml) UD] 2.5 mg IH Q6H PRN 14 Days #1 PRN Reason: Shortness Of Breath RX: Cefuroxime Axetil [Cefuroxime] 500 mg PO Q12H #6 tablet Methylprednisolone [Medrol Dose Pack (21 tabs)] See Taper PO DAILY #21 mg Oseltamivir Phosphate [Tamiflu] 75 mg PO BID #4 capsule - Follow Up Plan Condition: GOOD Disposition: HOME/ ROUTINE Instructions: Flu, Pneumococcal Conjugate Vaccine (13-Valent), Influenza Virus Vaccine (Inactivated), Community-Acquired Pneumonia, Adult (DC) Additional Instructions: Please follow up with your primary care doctor, within 3-5 days of discharge. José Miguel swan have an appointment at the [facility] at 12:30pm on 05/08/18 on the ground floor of [facility]. Please arrive early to your appointment. Please bring a photo ID and your [facility] care paperwork with you to your appointment. Please ensure that your [employer] [employer] paperwork is completed upon arrival to your appointment. Please continue taking the following medications as directed: Tamiflu 75mg twice a day for 2 days. Please start your first dose tonight. Cefuroxime 500mg every 12 hours for 3 days. Please start this medication tonight Medrol-dose pack. Please start this medication tomorrow, 04/30/18. Please follow the instructions written on the dose pack and complete the entire course Please resume the medications you were taking previously If your symptoms return, please visit the nearest emergency room Ref[place]: [facility] [place] Annika Bustos MD [Medical Doctor] - <Leela Mijares - Last Filed: 04/30/18 16:21> Provider - Provider Date of Admission: 04/28/18 11:00 Attending physician: Leela Mijares DO Primary care physician: NO PRIMARY CARE PROVIDER Consults: 04/26/18 14:53 Inpatient NCR OPERATOR Core Measures Referral Routine Comment: exac asthma Physician Instructions: Reason For Exam: eval Transition In Care/Readmission Reduction Routine Comment: asthma Physician Instructions: Reason For Exam: exac Hospital Course - Lab Results Lab Results: Micro Results 04/26/18 09:40 Blood Blood Culture - Preliminary NO GROWTH AFTER 4 DAYS 04/26/18 09:24 Blood Blood Culture - Preliminary NO GROWTH AFTER 4 DAYS 04/26/18 18:24 Urine,Clean Catch Urine Culture - Final No Growth (<1,000 CFU/ML) Most Recent Lab Values WBC 10.9 10^3/uL (4.5-11.0) D 04/29/18 07:00 RBC 5.01 10^6/uL (3.5-6.1) 04/29/18 07:00 Hgb 12.6 g/dL (12.0-16.0) 04/29/18 07:00 Hct 39.3 % (36.0-48.0) 04/29/18 07:00 MCV 78.4 fl (80.0-105.0) L 04/29/18 07:00 MCH 25.1 pg (25.0-35.0) 04/29/18 07:00 MCHC 32.1 g/dl (31.0-37.0) 04/29/18 07:00 RDW 14.2 % (11.5-14.5) 04/29/18 07:00 Plt Count 218 10^3/uL (120.0-450.0) 04/29/18 07:00 MPV 10.7 fl (7.0-11.0) 04/29/18 07:00 Neut % (Auto) 77.2 % (50.0-68.0) H 04/29/18 07:00 Lymph % (Auto) 15.4 % (22.0-35.0) L 04/29/18 07:00 [place] % (Auto) 7.3 % (1.0-6.0) H 04/29/18 07:00 Eos % (Auto) 0.0 % (1.5-5.0) L 04/29/18 07:00 Baso % (Auto) 0.1 % (0.0-3.0) 04/29/18 07:00 Lymph # (Auto) 1.7 (1.2-3.4) 04/29/18 07:00 [place] # (Auto) 0.8 (0.1-0.6) H 04/29/18 07:00 Eos # (Auto) 0.0 (0.0-0.7) 04/29/18 07:00 Baso # (Auto) 0.01 K/mm3 (0.0-2.0) 04/29/18 07:00 Absolute Neuts (auto) 8.41 (1.4-6.5) H 04/29/18 07:00 Sodium 137 mmol/L (132-148) 04/29/18 07:00 Potassium 4.3 mmol/L (3.6-5.0) 04/29/18 07:00 Chloride 106 mmol/L (98-107) 04/29/18 07:00 Carbon Dioxide 25 mmol/L (21-33) 04/29/18 07:00 Anion Gap 10 (10-20) 04/29/18 07:00 BUN 12 mg/dL (7-21) 04/29/18 07:00 Creatinine 0.6 mg/dl (0.7-1.2) L 04/29/18 07:00 Est GFR ( Amer) > 60 04/29/18 07:00 Est GFR (Non-Af Amer) > 60 04/29/18 07:00 Random Glucose 125 mg/dL (70-110) H 04/29/18 07:00 Hemoglobin A1c 5.5 % (4.2-6.5) 04/26/18 09:24 Calcium 8.7 mg/dL (8.4-10.5) 04/29/18 07:00 Phosphorus 3.8 mg/dL (2.5-4.5) 04/29/18 07:00 Magnesium 2.2 mg/dL (1.7-2.2) 04/29/18 07:00 Total Bilirubin 0.2 mg/dL (0.2-1.3) 04/29/18 07:00 AST 54 U/L (14-36) H 04/29/18 07:00 ALT 49 U/L (7-56) 04/29/18 07:00 Alkaline Phosphatase 55 U/L (38-126) 04/29/18 07:00 Total Protein 7.1 g/dL (5.8-8.3) 04/29/18 07:00 Albumin 3.6 g/dL (3.0-4.8) 04/29/18 07:00 Globulin 3.6 gm/dL 04/29/18 07:00 Albumin/Globulin Ratio 1.0 (1.1-1.8) L 04/29/18 07:00 Procalcitonin 0.32 NG/ML (0.19-0.49) 04/26/18 09:24 Beta HCG, Quant < 2.39 mIU/mL (0-6.15) 04/26/18 09:24 Urine Color Yellow (YELLOW) 04/26/18 18:24 Urine Appearance Clear (CLEAR) 04/26/18 18:24 Urine pH 6.0 (4.7-8.0) 04/26/18 18:24 Ur Specific [place] 1.020 (1.005-1.035) 04/26/18 18:24 Urine Protein Negative mg/dL (<30 mg/dL) 04/26/18 18:24 Urine Glucose (UA) Negative mg/dL (NEGATIVE) 04/26/18 18:24 Urine Ketones Negative mg/dL (NEGATIVE) 04/26/18 18:24 Urine Blood Trace-intact (NEGATIVE) H 04/26/18 18:24 Urine Nitrate Negative (NEGATIVE) 04/26/18 18:24 Urine Bilirubin Negative (NEGATIVE) 04/26/18 18:24 Urine Urobilinogen 0.2 E.U./dL (<1 E.U./dL) 04/26/18 18:24 Ur Leukocyte Esterase Negative Raul/uL (NEGATIVE) 04/26/18 18:24 Urine RBC 5 - 10 /hpf (0-2) H 04/26/18 18:24 Urine WBC 1 - 3 /hpf (0-6) 04/26/18 18:24 Ur Epithelial Cells 4 - 5 /hpf (0-5) 04/26/18 18:24 Urine Bacteria Many /hpf (NONE) 04/26/18 18:24 Urine Other Uyeast /hpf 04/26/18 18:24 Influenza Typ A,B (EIA) Pos for influenza a (NEGATIVE) H 04/26/18 09:24 Ur L.pneumophila Ag Negative (NEGATIVE) 04/26/18 18:24 Attending/Attestation - Attestation I have personally seen and examined this patient.: Yes I have fully participated in the care of the patient.: Yes I have reviewed all pertinent clinical information, including history, physical exam and plan: Yes Notes (Text): Please note this DC summary is for 04/29/18 Patient seen and examined by me with resident 10:40AM and prior to discharge on 04/29/18. Case including discharge plan discussed with resident. Agree with above with following additions/corrections. Patient is a 38-year-old female past medical history significant for asthma that presented to the emergency room with shortness of breath, dizziness, chest congestion and body aches. Please see H&P for full details. Patient was admitted with acute asthma exacerbation, influenza A, left lower lobe opacity, tachycardia, hyperglycemia, and hypokalemia. Patient was found to have sepsis secondary to influenza A and left lower lobe community acquired pneumonia. Patient was found to have have leukocytosis and was febrile. Pro- calcitonin was 0.32. Blood culture showed no growth. Culture showed no growth. Urine for Legionella was negative. Chest x-ray 04/26/18 per radiologist showed questionable small opacity at the left lower lobe. Repeat chest xray 04/28/18 per radiologist showed no acute infiltrate bilaterally, no pleural effusion or pneumothorax, hilar vascular markings are stable and remained somewhat prominent. Patient was treated with Tamiflu, Rocephin, and Zithromax. Patient was also treated with IV fluids. She was also found to have acute asthma exace rbation likely secondary to the pneumonia and influenza A. With nebulizer treatments, Pulmicort, IV Solu-Medrol, and guaifenesin. Patient was also placed on O2 via nasal cannula as needed. Patient had a few episodes of diarrhea which resolved. Leukocytosis resolved. Patient was also found to be hyperglycemic which may have been secondary to steroids. Hemoglobin A1c was 5.5. Patient was feeling much better. Was able to ambulate without feeling short of breath. Patient was not hypoxemic. Fevers resolved. Patient was discharged home on Ceftin and Tamiflu. On day of discharge, patient stated she was feeling much better. Patient's shortness of breath was much improved. Cough was also improved. Patient was able to take deep breaths. Patient denied nausea or vomiting. No chest pain or palpitations. No headache or dizziness. No change in vision or light headedness. No fevers or chills. No dysuria or burning with urination. No diarrhea or constipation. Physical exam: General: Awake and alert sitting up in bed in no acute distress HEENT: Normocephalic, atraumatic. Extraocular muscles intact, pupils equal and reactive, no scleral icterus. Oropharynx is pink and moist. No pharyngeal erythema or exudate appreciated. Neck is supple. Cardiovascular: Regular rhythm. Normal S1 and S2. No murmurs, rubs, or gallops appreciated Pulmonary: Normal respiratory effort. Improved breath sounds. No rhonchi, rales, or wheezing appreciated. Gastrointestinal: Soft, nondistended. Nontender. Positive bowel sounds all 4 quadrants. No guarding. Musculoskeletal: Moves all extremities. No calf tenderness. No edema appreciated. Central nervous system: AAOx3, CN 2-12 grossly intact. Dermatologic: Skin warm and dry. Please see chart for full details. Follow up instructions: Patient to [facility] at 12:30pm on 05/08/18 on the ground floor of [facility]. Patient to take medications as prescribed. All instructions explained to the patient in detail. Patient both understands and agrees to all instructions. Written instructions also given. Time spent in discharging the patient including chart review, medication reconciliation, discussion with the patient, medical communication specialist, consultants, and nursing staff was approximately 40 minutes.
[2018-05-01 02:31] LABS: SOURCE SERUM
== END 2018-04-29 17:32 | disposition home or self-care (01) | DRG 720 ==
LOC: ED 09:19 → ERH 13:41 → 5RSO 15:18 → OBSVTOIN 04-28 11:00
PROVIDERS: ADMIT Internal Medicine; ATTEND Hospitalist
DX: A41.89 Other specified sepsis (principal); J11.00 Influenza due to unidentified influenza virus with unspecified type of pneumonia; J18.1 Lobar pneumonia, unspecified organism; J45.901 Unspecified asthma with (acute) exacerbation; E87.6 Hypokalemia; R73.9 Hyperglycemia, unspecified; T38.0X5A Adverse effect of glucocorticoids and synthetic analogues, initial encounter; R19.7 Diarrhea, unspecified; T36.95XA Adverse effect of unspecified systemic antibiotic, initial encounter; Z82.5 Family history of asthma and other chronic lower respiratory diseases